=== PATIENT | male | born 1950 | race Caucasian/White ===

== ENCOUNTER 2016-09-07 05:10 | Day surgery (SDC) | payer OTHER ==
--- NOTE | 2016-09-04 10:37 | EKG Report ---
Test Performed on : 09/04/2016 10:35:10 AM Test Reason : PAT Blood Pressure : / mmHG Vent. Rate : 071 BPM Atrial Rate : 071 BPM P-R Int : 134 ms QRS Dur : 086 ms QT Int : 380 ms P-R-T Axes : 053 050 041 degrees QTc Int : 412 ms Normal sinus rhythm. Normal ECG No previous ECGs available Confirmed by Zoey WATKINS, Drew Andrea ([id number]) on 09/06/2016 3:22:02 PM
[2016-09-04 11:32] LABS: HEMATOCRIT 48.3 % (42.0-52.0); HEMOGLOBIN 16.3 g/dL (14.0-18.0); MCH 33.6 PG (27-31); MCHC 33.7 g/dL (33-37); MCV 99.6 FL (81-99); MPV 10.1 FL (7.4-10.4); RBC 4.85 XMIL (4.7-6.1)
[2016-09-04 11:58] LABS: AGAP 12; BUN 22 mg/dL (8-22); CALCIUM 8.8 mg/dL (8.8-10.2); CHLORIDE 95 mmol/L (98-107); COSMO 273; POTASSIUM 4.6 mmol/L (3.5-5.1); SODIUM 135 mmol/L (136-145); TCO2 28 mmol/L (25-35)
[2016-09-07] MEDS ORDERED: KEFZOL 1 GM/D5W 50 ML ONE (05:26)
[2016-09-07] MEDS ORDERED: LR 1,000 ML ONE ×3 (05:26→15:42)
[2016-09-07] MEDS ORDERED: MARCAINE 0.25% PF/EPI 1:200,000 ONE (06:34)
[2016-09-07] MEDS ORDERED: [UNRECOGNIZED DRUG - OTHER] PO SCH (09:39)
[2016-09-07] MEDS ORDERED: ZETIA PO SCH (09:39)
[2016-09-07] MEDS ORDERED: NON-FORMULARY MED (Cyanocobalamin (Vitamin B-12) [Vitamin B12] 2,500 MCG) PO SCH (09:39)
[2016-09-07] MEDS ORDERED: NORCO-10 PO PRN (09:39)
[2016-09-07] MEDS ORDERED: OMEGA PO SCH (09:39)
[2016-09-07] MEDS ORDERED: FATTY ACIDS PO SCH (09:39)
[2016-09-07] MEDS ORDERED: VALSARTAN PO SCH (09:39)
[2016-09-07] MEDS ORDERED: HCTHIAZID PO SCH (09:39)
[2016-09-07] MEDS ORDERED: ZINC 100 MG PO SCH (09:39)
[2016-09-07] MEDS ORDERED: AMLODIPINE PO SCH (09:39)
[2016-09-07] MEDS ORDERED: FISH OIL PO SCH (09:39)
[2016-09-07] MEDS ORDERED: LACTOBACILLUS COMBINATION NO 4 PO SCH (09:39)
[2016-09-07] MEDS ORDERED: ZOFRAN IV PRN (09:39)
[2016-09-07] MEDS ORDERED: NORCO-10 ONE ×2 (09:41→13:31)
--- NOTE | 2016-09-07 09:51 | OPERATIVE NOTE ---
PROCEDURE DATE: 09/07/2016 PROCEDURE PERFORMED: Robotic transperitoneal mesh repair of bilateral direct inguinal hernia. SURGEON: Skip Walsh MD. 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 PREOPERATIVE DIAGNOSIS: Bilateral inguinal hernia. POSTOPERATIVE DIAGNOSIS: Bilateral direct inguinal hernia with lipomas of the cord. DESCRIPTION OF PROCEDURE: After satisfactory general endotracheal anesthesia was achieved, the patient was placed in Drew stirrups. The abdomen was prepped and draped in a sterile fashion. We anesthetized the skin in the epigastrium, made a small vertical incision, dissected down to the fascia. We scored the fascia and introduced a 12 trocar Optiview technique into the abdominal cavity. We insufflated through this trocar. We then placed our robotic trocars lateral and slightly inferior to the mid epigastric trocar. After our robotic trocars were placed appropriately, we placed the patient in profound Trendelenburg and lowered the legs and brought the robot in between the legs and docked the robot. I then went to the console. The cadiere was used in the #2 arm and the scissors in #1 arm. We noted the area of the anterior iliac spine and then began incising the peritoneum from right to left. There were 2 direct defects identified. We then first began on the left and dissected the peritoneum down inferiorly incising the areolar tissue. We dissected medially down to Nicola's ligament. We dissected the peritoneum out of the direct defect. There was no indirect sac identified. There was a lipoma of the cord laterally that we dissected away from the cord structures and from the cord and left it in the abdominal cavity until the end of the procedure. We further dissected the tissue superiorly and inferiorly to allow room for the ProGrip mesh. We then turned our attention the right side and did exactly the same procedure by developing the space. Again, there was a direct defect. There was no indirect sac. There was a small lipoma of the cord on the right. The peritoneum on the right was somewhat more tenuous and tore a little bit more easily. But, after we had both inguinal canal areas adequately exposed and the peritoneum dissected back, we then went to the left side and introduced the ProGrip mesh into the #2 arm and placed it along the course of the inguinal ligament and then unfolded inferiorly once and superiorly x2 thereby satisfactorily deploying the mesh across the inguinal floor. It draped across the cord structures nicely, covered the direct defect nicely, as well as the internal ring. We then introduced the ProGrip on the right side through the #1 arm and, again, advanced it down to the inguinal ligament and laid the transition zone along the inguinal ligament and then unfolded inferiorly x1 and superiorly x2. This again covered the cord structures satisfactorily, covered the direct defect , covered the internal ring. We then passed a 2-0 V-Loc stitch and closed the peritoneum on the right side from the midline laterally and then we introduced another V-Loc and closed the defect on the peritoneum on the right from medial to lateral. There was still a rent in the peritoneum inferiorly so we added another V-Loc and closed it as well so that at the termination of the peritoneal closure no mesh was expose. The needles were safely removed from each V-Loc stitch. I then scrubbed back in. We undocked the robot. The videolaparoscope was introduced through a robot trocar. The lipomas that we had identified were removed through the 12 trocar. We then flattened the patient. I used the Medardo-Clementina wound closure to pass 2-0 Polysorb through the muscle of both robot trocar sites. We then desufflated and completely removed the 12 trocar as well and closed the fascia in the epigastrium under direct visualization with a 2-0 Polysorb. The skin was closed with 4-0 Polysorb subcuticular stitches. Sterile OpSite were applied. He tolerated it well. He was sent to the recovery room in satisfactory condition. [facility]
[2016-09-07] MEDS ORDERED: DIPRIVAN 1% ONE (15:24)
[2016-09-07] MEDS ORDERED: FENTANYL ONE (15:24)
[2016-09-07] MEDS ORDERED: NEOSTIGMINE ONE (15:42)
[2016-09-07] MEDS ORDERED: XYLOCAINE-MPF 2% ONE (15:42)
[2016-09-07] MEDS ORDERED: ZOFRAN ONE (15:42)
[2016-09-07] MEDS ORDERED: QUELICIN (DOSE) ONE (15:42)
[2016-09-07] MEDS ORDERED: STERILE WATER INJ. ONE (15:42)
[2016-09-07] MEDS ORDERED: NORCURON ONE (15:42)
[2016-09-07] MEDS ORDERED: ROBINUL ONE (15:42)
[2016-09-07] MEDS ORDERED: NEO-SYNEPHRINE ONE (15:42)
[2016-09-07 18:13] VITALS: BP 157/98
[2016-09-08] MEDS ORDERED: PROTONIX PO SCH (07:00)
== END 2016-09-07 17:20 | disposition home or self-care (01) ==
LOC: OPS 05:10
PROVIDERS: ATTEND Surgery
DX: K40.20 Bilateral inguinal hernia, without obstruction or gangrene, not specified as recurrent (principal); D17.6 Benign lipomatous neoplasm of spermatic cord; M19.90 Unspecified osteoarthritis, unspecified site; K21.9 Gastro-esophageal reflux disease without esophagitis; I10 Essential (primary) hypertension
CPT/HCPCS: 80048; 82948; 85027; 88304; 93005; 93010; C1781; J0330; J0690; J2370; J2405; J3010; J7120; J2710; S0020